=== PATIENT | female | born 1945 | race Caucasian/White ===

== ENCOUNTER → 2020-11-20 | Outpatient (CLI) | payer MEDICARE, OTHER ==
[~2020-11-20] MED LIST: ASPI81TA45 PO; ATOR-2 PO; CLOP75TA PO; GABA300C PO; HYDR-3237 PO; OMEP20TA62 PO; PRAM1TAB PO; SEMA0.25 INJ; TRAZ-175 PO
[2020-11-20 11:50] LABS: ALANINE AMINOTRANSFERASE 31 U/L (12-78); ALBUMIN 3.9 g/dL (3.4-5.0); ANION GAP 4 mmol/L (5-15); CHLORIDE 109 mmol/L (98-107); CREATININE 1.06 mg/dL (0.55-1.02)
[2020-11-20 11:52] LABS: ALKALINE PHOSPHATASE 113 U/L (45-117); BILIRUBIN,TOTAL 0.6 mg/dL (0.2-1.0); TOTAL PROTEIN 7.3 g/dL (6.4-8.2)
== END | disposition home or self-care (01) ==
LOC: STAR 10:28
PROVIDERS: ATTEND Orthopaedic Surgery
DX: Z01.818 Encounter for other preprocedural examination (principal); M65.331 Trigger finger, right middle finger; R00.1 Bradycardia, unspecified; Z20.828 Contact with and (suspected) exposure to other viral communicable diseases
CPT/HCPCS: 80053; 87635; 93005

== ENCOUNTER 2020-11-26 08:13 | Day surgery (SDC) | payer MEDICARE, OTHER ==
[~2020-11-26] VITALS: Ht 152.4 cm; Wt 73.0 kg
[~2020-11-26 08:13] MED LIST changes: +BUPIVACAINE/PF 0.5% ONE; +LIDOCAINE 1%, 20ML ONE
[2020-11-26] MEDS ORDERED: ACETAMINOPHEN 500 MG TABLET PO STA (08:37)
[2020-11-26] MEDS ORDERED: BP MED (08:55)
[2020-11-26] MEDS ORDERED: LACTATED RINGERS 1,000 ML IV SCH (09:00)
[2020-11-26] MEDS ORDERED: LIDOCAINE-MPF 1%, 2ML INFIL ONE (09:00)
[2020-11-26] MEDS ORDERED: CHLORHEXIDINE 15 ML UDC MM ONE (09:00)
[2020-11-26] MEDS ORDERED: INSU100C SQ-INSULIN (09:13)
[2020-11-26] MEDS ORDERED: ONDANSETRON 2MG/ML, 2ML IVPush PRN (09:30)
[2020-11-26] MEDS ORDERED: OXYcodone 5 MG/5 ML ORAL.SOL UDC PO PRN (09:30)
[2020-11-26] MEDS ORDERED: FENTANYL PF 100 MCG/2ML IV PRN (09:30)
[2020-11-26] MEDS ORDERED: HYDROmorphone 1 MG/ML, 1ML INJ IVPush PRN (09:30)
[2020-11-26] MEDS ORDERED: EPHEDRINE 50 MG/ML, 1ML IVPush PRN (09:30)
[2020-11-26] MEDS ORDERED: hydrALAzine 20 MG/ML, 1ML IV PRN (09:30)
[2020-11-26] MEDS ORDERED: PROMETHAZINE 25 MG/ML, 1ML IVPush PRN (09:30)
[2020-11-26] MEDS ORDERED: LABETALOL 5MG/ML, 20ML IV PRN (09:30)
[2020-11-26] MEDS ORDERED: CEFAZOLIN 1,000 MG ONE ×2 (10:02)
[2020-11-26] MEDS ORDERED: KETOROLAC 30 MG/1 ML ONE (10:02)
[2020-11-26] MEDS ORDERED: PROPOFOL 10 MG/ML, 20ML ONE (10:16)
== END 2020-11-26 11:20 | disposition home or self-care (01) ==
LOC: OUT 08:13
PROVIDERS: ATTEND Orthopaedic Surgery
DX: M65.331 Trigger finger, right middle finger (principal); M19.90 Unspecified osteoarthritis, unspecified site; Z79.899 Other long term (current) drug therapy; Z79.01 Long term (current) use of anticoagulants; Z83.3 Family history of diabetes mellitus; Z86.73 Personal history of transient ischemic attack (TIA), and cerebral infarction without residual deficits
CPT/HCPCS: 26055; 82962; J0690; J1885; J2704; J7120